=== PATIENT | female | born 1955 | race Caucasian/White ===

== ENCOUNTER 2017-10-14 11:10 | Outpatient (CLI) | payer OTHER ==
[2017-10-14] VITALS (10 sets, daily range): BP systolic 139–167; BP diastolic 62–73
[~2017-10-14] VITALS: Ht 154.9 cm; Wt 132.9 kg
[~2017-10-14 11:10] MED LIST: HYDR-2758 PO; LEVO75TA5 PO
[2017-10-14] MEDS ORDERED: LACT460C PO (11:25)
[2017-10-14] MEDS ORDERED: PROAIR HFA8.5 GM INH (11:25)
[2017-10-14] MEDS ORDERED: ESCITALOPRAM OX20 MG PO (11:25)
[2017-10-14] MEDS ORDERED: [UNRECOGNIZED DRUG - CODE] PO (11:25)
[2017-10-14] MEDS ORDERED: ACYC800T PO (11:25)
[2017-10-14 11:47] LABS: CALCIUM 9.1 mg/dL (8.5-10.1); CREATININE 0.8 mg/dL (0.6-1.0); GFR 72.7; POTASSIUM 4.4 mmol/L (3.5-5.1)
[2017-10-14 12:01] LABS: HEMOGLOBIN 14.7 g/dL (12.0-15.5); RED BLOOD COUNT 4.52 x10^6/uL (3.50-5.40); RED CELL DISTRIBUTION WIDTH 13.5 % (11.5-14.5); WHITE BLOOD COUNT 8.6 x10^3/uL (4.0-11.0)
[2017-10-14 12:04] LABS: PROTHROMBIN TIME PATIENT 12.3 SEC (11.7-14.0)
[2017-10-14] MEDS ORDERED: IOHEXOL 300 MG/ML 100ML VIAL. ONE (12:28)
[2017-10-14] MEDS ORDERED: LIDOCAINE 1% PF 30 ML VIAL. ONE (12:29)
[2017-10-14] MEDS ORDERED: NITROGLYCERIN 200 MCG/2 ML SYRINGE FOR CATH/VASC LAB. ONE (12:51)
[2017-10-14] MEDS ORDERED: fentaNYL PF VIAL 100 MCG/2 ML VIAL ONE (12:51)
[2017-10-14] MEDS ORDERED: VERAPAMIL 5 MG/2 ML VIAL. ONE (12:51)
[2017-10-14] MEDS ORDERED: MIDAZOLAM HCL/PF 2 MG/2 ML VIAL. ONE (12:51)
[2017-10-14] MEDS ORDERED: HEPARIN for IV BOLUS 10,000 UNIT/10 ML VIAL. ONE (12:51)
--- NOTE | 2017-10-14 12:59 | PDOC ---
MODERATE SEDATION ASSESSMENT RISKS/ALTERNATIVES Risks/Alternatives Risks and alternatives of this type of sedation and procedure discussed with: RISK/ALTERNATIVES: Patient H & P ON CHART H & P H & P on chart and reviewed for co-morbid conditions and appropriate labs. H&P ON CHART: Yes STATUS PREG STATUS ASSESSED: Yes MEDS/ALLERGIES REVIEWED Meds/Allergies Reviewed Medications and Allergies including time and route of recently administered narcotics and sedatives. MEDS/ALLERGIES REVIEWED: Yes ASA RATING ASA RATING: II AIRWAY ASSESSMENT Airway Assessment Airway patency, oral function limitations, presence of caps, crowns, dentures, partials, and ability to extend neck assessed. AIRWAY ASSESSMENT: Yes MALLAMPATI SCORE MALLAMPATI SCORE: II PRE-SEDATION ASSESSMENT PRE-SEDATION ASSESSMENT: Yes NEETA DODSON MD Oct 14, 2017 12:59
[2017-10-14] MEDS ORDERED: IOHEXOL 300 MG/ML 100ML VIAL. IART ONE (13:15)
[2017-10-14] MEDS ORDERED: fentaNYL PF VIAL 100 MCG/2 ML VIAL IV ONE (13:15)
[2017-10-14] MEDS ORDERED: MIDAZOLAM HCL/PF 2 MG/2 ML VIAL. IV ONE (13:15)
[2017-10-14] MEDS ORDERED: NITROGLYCERIN 200 MCG/2 ML SYRINGE FOR CATH/VASC LAB. IART ONE (13:15)
[2017-10-14] MEDS ORDERED: VERAPAMIL 5 MG/2 ML VIAL. IART ONE (13:15)
[2017-10-14] MEDS ORDERED: HEPARIN for IV BOLUS 10,000 UNIT/10 ML VIAL. IART ONE (13:15)
[2017-10-14] MEDS ORDERED: LIDOCAINE 1% PF 2 ML VIAL. INJ ONE (13:15)
[2017-10-14] MEDS ORDERED: CONTRAST GIVEN. MC PRN (13:30)
[2017-10-14] MEDS ORDERED: IV NORMAL SALINE 1000ML BAG 1,000 ML IV SCH (13:42)
[2017-10-14] MEDS ORDERED: 0.9 % SODIUM CHLORIDE 10 ML DISP.SYRIN. IV PRN (13:45)
[2017-10-14] MEDS ORDERED: NITROGLYCERIN SUBLINGUAL 0.4 MG BOTTLE OF 25. SL PRN (13:45)
--- NOTE | 2017-10-14 18:28 | CARD ---
MR#: [id number] Date of Study: 10/14/2017 Ordering Physician: RODNEY MELARA, Referring Physician: RODNEY MELARA, Tech: RT Kei (R) APPROVED REPORT Procedures Left heart catheterization Selective coronary angiogram The patient is a 62-year-old male with a history of hyperlipidemia. She was evaluated in the office f or episodes of increasing dyspnea on exertion. Nuclear stress testing suggested an anterior area of i schemia. Cardiac catheterization recommended for definitive diagnosis. Risks and benefits were discus sed. The patient agreed to proceed. After informed consent was obtained the patient was brought to the heart catheterization lab. The are a of the right radial artery was was prepared in the usual manner with Betadine, sterile draping and local anesthetic after an acceptable Edgar's test. A quick catheter device was used to enter the righ t radial artery, a wire placed and a 6 Vincentian sheath placed over the wire. The standard mixture hepar in and antispasm medication was administered. Using a J-wire, a 6 Vincentian JL3.5 diagnostic catheter wa s advanced to the ascending aorta. It was then used to engage the left system and sequential injectio ns in various views were obtained. Using an [id number] technique, the JL4 catheter was removed and replaced with a JR4 diagnostic catheter. This catheter passed into the left ventricle and pressures were obtained. It was then used to engage the right coronary artery and an injection was performed. The catheters were then removed from the patient. The sheath was removed from the patient and the pun cture site sealed with a standard wristband. The patient was moved to the holding area in stable cond ition. Findings. Hemodynamics. LV 118/12,15 Aortic root 114/68 Coronaries Left main. The left main was normal size vessel without lesions. Left anterior descending. The LAD was a moderate size vessel with normal distribution. It had mild pr oximal tapering of 5-10%. Left circumflex. The left circumflex was a moderate size vessel with no lesions. Right coronary artery. The right coronary artery was a moderate size vessel with no lesions. <Conclusion> Minimal single-vessel coronary artery disease in the LAD with no lesions greater than 10%. Normal left ventricular pressures. Signed by : Rodney Melara MD Electronically Approved : 10/14/2017 18:27:25
== END 2017-10-14 17:00 | disposition home or self-care (01) ==
LOC: CCL 11:10
PROVIDERS: ATTEND Internal Medicine Cardiovascular Disease
DX: I25.10 Atherosclerotic heart disease of native coronary artery without angina pectoris (principal); E78.00 Pure hypercholesterolemia, unspecified; K21.9 Gastro-esophageal reflux disease without esophagitis; Z90.49 Acquired absence of other specified parts of digestive tract; E66.9 Obesity, unspecified; Z68.43 Body mass index [BMI] 50.0-59.9, adult; M19.90 Unspecified osteoarthritis, unspecified site; E03.9 Hypothyroidism, unspecified; F32.9 Major depressive disorder, single episode, unspecified; Z72.89 Other problems related to lifestyle; Z98.890 Other specified postprocedural states; F17.210 Nicotine dependence, cigarettes, uncomplicated; Z79.899 Other long term (current) drug therapy; Z79.01 Long term (current) use of anticoagulants
CPT/HCPCS: 36415; 80048; 85027; 85610; 85730; 93458; 99152; 99153; C1769; C1892; J1644; J2250; J3010; J3490; J7030; Q9967

== ENCOUNTER 2017-10-17 22:14 | Emergency (ER) | payer OTHER ==
[~2017-10-17] VITALS: Ht 154.9 cm; Wt 132.9 kg
[~2017-10-17 22:14] MED LIST changes: +ACYC800T PO; +ESCITALOPRAM OX20 MG PO; +LACT460C PO; +PROAIR HFA8.5 GM INH; +[UNRECOGNIZED DRUG - CODE] PO
[2017-10-17 22:30] VITALS: BP 124/57
[2017-10-17] MEDS ORDERED: CLIN300C8 PO (23:07)
--- NOTE | 2017-10-17 23:09 | PHYS DOC ---
Adult General Chief Complaint Chief Complaint: UPPER EXTREMITY SWELLING HPI HPI Patient is a 62 year old [f__sex] who presents with [] Review of Systems Review of Systems Constitutional: Denies fever or chills [] Eyes: Denies change in visual acuity, redness, or eye pain [] HENT: Denies nasal congestion or sore throat [] Respiratory: Denies cough or shortness of breath [] Cardiovascular: No additional information not addressed in HPI [] GI: Denies abdominal pain, nausea, vomiting, bloody stools or diarrhea [] : Denies dysuria or hematuria [] Musculoskeletal: Denies back pain or joint pain [] Integument: Denies rash or skin lesions [] Neurologic: Denies headache, focal weakness or sensory changes [] Endocrine: Denies polyuria or polydipsia [] All other systems were reviewed and found to be within normal limits, except as documented in this note. Allergies Allergies Allergies Coded Allergies Type Severity Reaction Last Updated Verified No Known Drug Allergies 11/08/14 No Physical Exam Physical Exam Constitutional: Well developed, well nourished, no acute distress, non-toxic appearance. [] HENT: Normocephalic, atraumatic, bilateral external ears normal, oropharynx moist, no oral exudates, nose normal. [] Eyes: PERRLA, EOMI, conjunctiva normal, no discharge. [] Neck: Normal range of motion, no tenderness, supple, no stridor. [] Cardiovascular:Heart rate regular rhythm, no murmur [] Lungs & Thorax: Bilateral breath sounds clear to auscultation [] Abdomen: Bowel sounds normal, soft, no tenderness, no masses, no pulsatile masses. [] Skin: Warm, dry, no erythema, no rash. [] Back: No tenderness, no CVA tenderness. [] Extremities: No tenderness, no cyanosis, no clubbing, ROM intact, no edema. [] Neurologic: Alert and oriented X 3, normal motor function, normal sensory function, no focal deficits noted. [] Psychologic: Affect normal, judgement normal, mood normal. [] EKG EKG [] Radiology/Procedures Radiology/Procedures [] Course & Med Decision Making Course & Med Decision Making Pertinent Labs and Imaging studies reviewed. (See chart for details) [] Dragon Disclaimer Dragon Disclaimer This electronic medical record was generated, in whole or in part, using a voice recognition dictation system. Departure Departure Impression: Primary Impression: Cellulitis Disposition: 01 HOME, SELF-CARE Condition: STABLE Referrals: Bridgette LE MD (PCP) Patient Instructions: Cellulitis Additional Instructions: Take the antibiotic as directed. Use cold compresses for comfort. You may use your at home pain medication as needed and alternate with ibuprofen for pain control. If worsening return to the emergency department. Scripts Clindamycin Hcl (CLINDAMYCIN HCL) 300 Mg Capsule 1 CAP PO TID, #30 CAP Prov: CT COX APRN 10/17/17 CT COX APRN Oct 17, 2017 23:09
== END 2017-10-18 00:02 | disposition home or self-care (01) ==
LOC: ER 22:14
DX: L03.113 Cellulitis of right upper limb (principal)
CPT/HCPCS: 99283

== ENCOUNTER → 2021-03-17 | Outpatient (CLI) | payer OTHER ==
[~2021-03-17] MED LIST changes: -ACYC800T PO; +ACYC800T88 PO; +ALBU2.5V8 INH; +CLIN-94 PO; -HYDR-2758 PO; +HYDR-2761 PO; -PROAIR HFA8.5 GM INH
--- NOTE | 2021-03-17 14:32 | RAD ---
EXAM: Chest, 2 views. HISTORY: Bronchitis. COMPARISON: None. FINDINGS: 2 views of the chest are obtained. There is lingular atelectasis or scarring. There is no c onsolidation, pleural effusion or pneumothorax. The heart is normal in size. IMPRESSION: Linear lingular atelectasis or scarring. Electronically signed by: Jeannie Tran MD (03/17/2021 2:30 PM) [id number]
== END ==
LOC: RAD 13:14
PROVIDERS: ATTEND Family Medicine
DX: J20.9 Acute bronchitis, unspecified (principal)
CPT/HCPCS: 71046